=== PATIENT | female | born 1980 | race African-American/Black ===

== ENCOUNTER 2017-06-17 14:06 | Emergency (ER) | payer MEDICAID ==
[~2017-06-17] VITALS: Ht 170.2 cm; Wt 150.0 kg
[2017-06-17] MEDS ORDERED: ONDANSETRON 4MG ODT PO ONE (14:30)
[2017-06-17 14:45] LABS: BASOPHILS % 0.7 % (0.0-2.0); EOSINOPHILS % 2.2 % (0.0-5.0); HEMATOCRIT. 23.2 % (36.0-48.0); LYMPHOCYTES % 22.6 % (20.0-50.0); MEAN CORPUSCULAR HEMOGLOBIN 18.8 pg (28.0-32.0); MEAN PLATELET VOLUME 8.2 fl (7.4-10.4); MONOCYTES % 3.1 % (2.0-8.0); NEUTROPHILS % 71.4 % (40.0-76.0); PLATELET 422 x1000/uL (130-400); RED BLOOD CELL COUNT 3.37 mill/uL (4.2-5.4); RED CELL DISTRIBUTION WIDTH 23.1 % (11.6-14.6)
[2017-06-17 14:55] LABS: HEMOGLOBIN. 6.3 g/dL (12.0-16.0)
[2017-06-17 15:02] LABS: CHLORIDE 104 mEq/L (98-107)
[2017-06-17 15:16] LABS: HCG SCREEN NEGATIVE
[2017-06-17 15:30] LABS: PLATELET ESTIMATE INCREASED
[2017-06-17 15:42] VITALS: BP 126/79
[2017-06-17] MEDS ORDERED: POTASSIUM CHLORIDE 20MEQ TABLET SR PO ONE (15:45)
== END 2017-06-17 15:54 | disposition left against medical advice (07) ==
LOC: ER 14:29
DX: D64.9 Anemia, unspecified (principal); R11.2 Nausea with vomiting, unspecified; E87.6 Hypokalemia
CPT/HCPCS: 36415; 80048; 82962; 84703; 85025; 93005; 99285; Z7610; Q0162